=== PATIENT | female | born 1945 | race Caucasian/White ===

== ENCOUNTER → 2016-10-14 | Outpatient (CLI) | payer OTHER ==
[~2016-10-14] MED LIST: ALBUAER2 INH; ASMTWH INH; CHOL100010 PO; CLCC1250 PO; DYZ PO; ESTCR; FISHOIL PO; FSMD/70 PO; LEVO50TA PO; LUTE15CA PO; ROPI1TAB PO; SERT50TA PO; VITAMIN B COMPLEX PO
[2016-10-14 09:35] LABS: BASO % 0.3 %; BASO ABS # 0.02 K/uL (0-0.2); COMPLETE YES; HEMATOCRIT 38.5 % (37-47); IG% 0.3 %; LYMPH ABS # 1.02 K/uL (1.2-3.4); MEAN CELL VOLUME 89.7 fL (80-100); MEAN CORPUSCULAR HEMOGLOBIN 29.4 pg (25-34); MEAN CORPUSCULAR HGB CONC 32.7 g/dl (32-36); MEAN PLATELET VOLUME 10.1 fL (7.4-10.4); MONO % 8.7 %; NEUT % 70.7 %; PLATELET COUNT 188 K/uL (130-400); RED BLOOD COUNT 4.29 M/uL (4.2-5.4); WHITE BLOOD COUNT 6.01 K/uL (4.8-10.8)
[2016-10-14 09:57] LABS: ALB/GLOB RATIO 0.7 (0.9-2); ALKALINE PHOSPHATASE 99 U/L (45-117); ALT/SGPT 17 U/L (12-78); AST/SGOT 13 U/L (15-37); BLOOD UREA NITROGEN 10 mg/dl (7-18); BUN/CREATININE RATIO 14.7 (10-20); CALCIUM 8.5 mg/dl (8.5-10.1); CARBON DIOXIDE 26 mmol/L (21-32); CHLORIDE 105 mmol/L (98-107); CHOLESTEROL 152 mg/dl (0-200); GLUCOSE 97 mg/dl (70-99); POTASSIUM 4.3 mmol/L (3.5-5.1); SODIUM 139 mmol/L (136-145); TRIGLYCERIDES 52 mg/dl (0-150); VERY LOW DENSITY LIPOPROT CALC 10 mg/dl
[2016-10-14 10:04] LABS: CHOLESTEROL/HDL RATIO 2.9; HDL CHOLESTEROL 53 mg/dl; LDL CHOLESTEROL CALCULATED 89 mg/dl
[2016-10-14 10:46] LABS: ESTIMATED AVERAGE GLUCOSE 123 mg/dl; HA1C FLAG Normal (Normal)
--- NOTE | 2016-10-19 11:59 | CODING QUERY MEDICAL NECESSITY ---
SUPPORTING DIAGNOSIS NEEDED A supporting diagnosis is required for the test/procedure performed on this patient in order for us to be reimbursed by the patient's insurance. Please provide a supporting diagnosis for the following test/procedure listed below next to the test name along with your signature. *If there is no additional diagnosis for this patient that would support the following test/procedure please document that below next to the test/procedure. Test(s)/Procedure(s) that require a supporting diagnosis: * GLYCATED HEMOGLOBIN DIAGNOSIS: * DOS: 10/14/16 Provider Signature: Date: Thank you Jayshree Beavers Health Information Management Once completed, please kindly fax back to [phone] For questions please call [phone]
== END | disposition home or self-care (01) ==
LOC: C.LAB 08:04
PROVIDERS: ATTEND Internal Medicine
DX: M85.80 Other specified disorders of bone density and structure, unspecified site (principal); R73.01 Impaired fasting glucose

== ENCOUNTER → 2016-12-05 | Outpatient (CLI) | payer OTHER ==
--- NOTE | 2016-12-06 12:17 | MAMMOGRAPHY REPORT ---
BILATERAL DIGITAL SCREENING MAMMOGRAM WITH CAD: 12/05/2016 CLINICAL HISTORY: Routine screening. Patient has no complaints. TECHNIQUE: Bilateral CC and MLO views were obtained. Repeat MLO views were performed due to patien t motion. Current study was also evaluated with a Computer Aided Detection (CAD) system. COMPARISON: Comparison is made to exams dated: 07/01/2015 mammogram, 04/12/2013 mammogram, 11/07/2011 m ammogram, 09/13/2010 mammogram - [facility], 01/20/2009, and 11/07/2007. BREAST COMPOSITION: There are scattered areas of fibroglandular density in both breasts. FINDINGS: The breast parenchymal pattern is similar to prior mammograms. There are stable lymph nod es in the superior right breast on the MLO view. No new suspicious mass, architectural distortion o r cluster of microcalcifications is seen. IMPRESSION: ACR BI-RADS CATEGORY 1: NEGATIVE There is no mammographic evidence of malignancy. A 1 year screening mammogram is recommended. The p atient will receive written notification of the results. Approximately 10% of breast cancers are not detected with mammography. A negative mammographic repor t should not delay biopsy if a clinically suggestive mass is present. Maru Wright M.D. ay/:12/05/2016 16:41:21 Container Coordinator: Jenna SHELTON(R)(M), [facility] letter sent: Normal 1/2 BI-RADS Code: ACR BI-RADS Category 1: Negative
== END | disposition home or self-care (01) ==
LOC: C.MAMM 08:59
PROVIDERS: ATTEND Internal Medicine
DX: M85.88 Other specified disorders of bone density and structure, other site (principal); Z12.31 Encounter for screening mammogram for malignant neoplasm of breast

== ENCOUNTER → 2017-03-20 | Outpatient (CLI) | payer OTHER ==
[2017-03-20 17:05] LABS: BASO % 0.2 %; BASO ABS # 0.01 K/uL (0-0.2); COMPLETE YES; EOS % 2.1 %; IG% 0.2 %; LYMPH % 19.9 %; LYMPH ABS # 1.23 K/uL (1.2-3.4); MEAN CELL VOLUME 92.2 fL (80-100); MEAN CORPUSCULAR HEMOGLOBIN 29.6 pg (25-34); MEAN CORPUSCULAR HGB CONC 32.1 g/dl (32-36); MEAN PLATELET VOLUME 9.9 fL (7.4-10.4); MONO % 7.3 %; NEUT % 70.3 %; PLATELET COUNT 171 K/uL (130-400); RED BLOOD COUNT 4.12 M/uL (4.2-5.4); WHITE BLOOD COUNT 6.17 K/uL (4.8-10.8)
[2017-03-20 17:10] LABS: URINE APPEARANCE CLEAR (CLEAR); URINE BILIRUBIN NEG (NEG); URINE COLOR YELLOW; URINE NITRITE NEG (NEG); URINE SPECIFIC GRAVITY 1.025 (1.000-1.030); UROBILINOGEN NEG (NEG)
[2017-03-20 17:16] LABS: ALT/SGPT 24 U/L (12-78); BLOOD UREA NITROGEN 18 mg/dl (7-18); CALCIUM 8.6 mg/dl (8.5-10.1); CARBON DIOXIDE 29 mmol/L (21-32); CHLORIDE 109 mmol/L (98-107); CREATININE 0.75 mg/dl (0.60-1.20); GLUCOSE 89 mg/dl (70-99); POTASSIUM 4.5 mmol/L (3.5-5.1); SODIUM 141 mmol/L (136-145)
[2017-03-20 17:18] LABS: ALB/GLOB RATIO 0.7 (0.9-2); ALKALINE PHOSPHATASE 111 U/L (45-117); AST/SGOT 18 U/L (15-37)
[2017-03-20 17:26] LABS: MANUAL MICROSCOPIC REQUIRED? NO
[2017-03-20 17:27] LABS: REVIEW REQ? NO
== END | disposition home or self-care (01) ==
LOC: C.LABBC 15:11
PROVIDERS: ATTEND Physician Assistant
DX: R10.9 Unspecified abdominal pain (principal)

== ENCOUNTER → 2017-03-21 | Outpatient (CLI) | payer OTHER ==
--- NOTE | 2017-03-21 14:07 | DIAGNOSTIC IMAGING REPORT ---
RENAL ULTRASOUND CLINICAL HISTORY: Acute left flank pain. COMPARISON STUDY: MRI of the abdomen March 12, 2013 and renal ultrasound December 12, 2011. TECHNIQUE: Sonography of the kidneys and the urinary bladder was performed. FINDINGS: The right kidney measures 10.8 x 4.6 x 4.8 cm and the left measures 11.4 x 5 x 4.9 cm. There is no right hydronephrosis or hydroureter. There is moderate dilatation of visualized portions of the left ureter. There is no significant left hydronephrosis. Both ureteral jets were visualized. No calculi or masses were identified by sonography. There is mild renal cortical thinning. IMPRESSION: 1. Moderate left ureteral dilatation without hydronephrosis. Ureteral dilatation has increased while collecting system dilatation has improved since MRI of March 12, 2013. Left ureteral jet identified although asymmetrically diminished when compared to the right. No ureteral calculi identified although these may be occult by sonography. 2. No right hydronephrosis. Electronically signed by: Rolando Fontaine M.D. 03/21/2017 2:06 PM Dictated Date/Time: 03/21/2017 1:53 PM
== END | disposition home or self-care (01) ==
LOC: C.ULTRBC 13:20
PROVIDERS: ATTEND Physician Assistant
DX: R10.9 Unspecified abdominal pain (principal)

== ENCOUNTER → 2017-05-02 | Outpatient (CLI) | payer OTHER ==
[~2017-05-02] MED LIST changes: +FUROSEMIDE 40 MG/4 ML VIAL IV ONE
--- NOTE | 2017-05-02 13:07 | DIAGNOSTIC IMAGING REPORT ---
RENAL SCAN DIURETIC (MAG 3) CLINICAL HISTORY: 72-year-old female with history of hydronephrosis of the left kidney, left UPJ obstruction, left flank pain. COMPARISON STUDY: 10/12/2010. TECHNIQUE: A nuclear diuretic renal scan is performed following the IV administration of 8.7 mCi technetium 99m radiolabeled MAG3. Posterior flow images were acquired at one frame every two seconds for a total 24 frames. Posterior static images were acquired every 5 minutes for a total of 40 minutes. IV Lasix was administered at 20 minutes. Renal curves were calculated. FINDINGS: On the flow images, there is normal and symmetric accumulation of activity in both kidneys. On the delayed images, there is normal and symmetric accumulation and excretion of activity from the right kidney. However, persistent activity is noted in the left renal collecting system, which appears dilated. There was appropriate response to Lasix bilaterally which was administered at 20 minutes. Subsequently, clearance phase imaging demonstrates time to peak on the right measures 14 minutes and time to peak on the left measures 15 minutes (normal time to peak 3 to 5 minutes). The T1 half pre-Lasix on the right ureters 22 minutes and the T1 half pre-Lasix on the left measures 41 minutes (normal T1 half pre-Lasix 8-12 minutes). The T1 half post Lasix on the right measures 25 minutes and the T1 half post-Lasix on the left measures 45 minutes. Greater than 50% retention in the left renal collecting system relative to the time of Lasix administration is consistent with an obstructed system. Split function measures 41% on the right and 59% on the left. IMPRESSION: 1. Delayed maximal parenchymal activity in the right kidney with delayed clearance. Appropriate response to Lasix without evidence of obstruction. This may indicate poor tubular excretion secondary to chronic medical renal disease. 2. Findings concerning for left renal obstruction. Electronically signed by: Prateek Trimble M.D. 05/02/2017 1:05 PM Dictated Date/Time: 05/02/2017 11:44 AM
== END | disposition home or self-care (01) ==
LOC: C.NUCL 10:12
PROVIDERS: ATTEND Urology
DX: N13.30 Unspecified hydronephrosis (principal)

== ENCOUNTER → 2017-06-14 | Outpatient (CLI) | payer OTHER ==
[~2017-06-14] MED LIST changes: -FUROSEMIDE 40 MG/4 ML VIAL IV ONE
--- NOTE | 2017-06-14 12:10 | DIAGNOSTIC IMAGING REPORT ---
TWO VIEW CHEST CLINICAL HISTORY: Asthma. FINDINGS: PA and lateral chest radiographs are compared to study dated 06/29/2012. Correlation is made with chest CT dated 11/25/2009. The cardiomediastinal silhouette is unremarkable. Chronic interstitial thickening is unchanged. A nipple shadow projects over the right lung base. Linear atelectasis is noted at the left lung base. No airspace consolidation or pleural effusion is seen. There is no pneumothorax. The skeletal structures are osteopenic. Degenerative change is noted in the thoracic spine. A moderate compression deformity is seen at the thoracal lumbar junction. IMPRESSION: No active disease in the chest. Electronically signed by: Juancarlos Schmitz M.D. 06/14/2017 12:08 PM Dictated Date/Time: 06/14/2017 12:07 PM
== END | disposition home or self-care (01) ==
LOC: C.RAD 11:33
PROVIDERS: ATTEND Specialist
DX: J45.40 Moderate persistent asthma, uncomplicated (principal); J30.9 Allergic rhinitis, unspecified

== ENCOUNTER → 2017-06-28 | Outpatient (CLI) | payer OTHER ==
[2017-06-28 15:06] LABS: BLOOD UREA NITROGEN 17 mg/dl (7-18); BUN/CREATININE RATIO 21.7 (10-20); CREATININE 0.77 mg/dl (0.60-1.20)
== END | disposition home or self-care (01) ==
LOC: C.RAD 13:20
PROVIDERS: ATTEND Urology
DX: N13.30 Unspecified hydronephrosis (principal)

== ENCOUNTER → 2017-10-17 | Outpatient (CLI) | payer MEDICARE ==
[2017-10-17 09:31] LABS: BASO % 0.2 %; BASO ABS # 0.01 K/uL (0-0.2); EOS % 4.3 %; EOS ABS # 0.21 K/uL (0-0.5); HEMATOCRIT 38.9 % (37-47); HEMOGLOBIN 12.8 g/dL (12.0-16.0); IG# 0.01 K/uL (0.00-0.02); LYMPH % 22.6 %; MEAN CELL VOLUME 91.5 fL (80-100); MEAN CORPUSCULAR HEMOGLOBIN 30.1 pg (25-34); MEAN CORPUSCULAR HGB CONC 32.9 g/dl (32-36); MEAN PLATELET VOLUME 10.1 fL (7.4-10.4); MONO % 5.1 %; MONO ABS # 0.25 K/uL (0.11-0.59); NEUT % 67.6 %; NEUT ABS # 3.29 K/uL (1.4-6.5); PLATELET COUNT 151 K/uL (130-400); RED CELL DISTRIBUTION WIDTH CV 13.4 % (11.5-14.5); RED CELL DISTRIBUTION WIDTH SD 44.7 fL (36.4-46.3); WHITE BLOOD COUNT 4.87 K/uL (4.8-10.8)
[2017-10-17 09:51] LABS: ALBUMIN 3.3 gm/dl (3.4-5.0); ALT/SGPT 21 U/L (12-78); AST/SGOT 14 U/L (15-37); BLOOD UREA NITROGEN 11 mg/dl (7-18); CALCIUM 8.5 mg/dl (8.5-10.1); CARBON DIOXIDE 27 mmol/L (21-32); CHOLESTEROL 175 mg/dl (0-200); CREATININE 0.83 mg/dl (0.60-1.20); GLUCOSE 100 mg/dl (70-99); LDL CHOLESTEROL CALCULATED 106 mg/dl; POTASSIUM 4.5 mmol/L (3.5-5.1); SODIUM 139 mmol/L (136-145)
[2017-10-17 10:01] LABS: ALKALINE PHOSPHATASE 109 U/L (45-117); TOTAL PROTEIN 8.1 gm/dl (6.4-8.2)
== END | disposition home or self-care (01) ==
LOC: C.LAB 08:30
PROVIDERS: ATTEND Internal Medicine
DX: E03.9 Hypothyroidism, unspecified (principal); G47.33 Obstructive sleep apnea (adult) (pediatric); E78.5 Hyperlipidemia, unspecified; R73.01 Impaired fasting glucose; G47.61 Periodic limb movement disorder; D69.6 Thrombocytopenia, unspecified; E04.1 Nontoxic single thyroid nodule

== ENCOUNTER → 2017-12-27 | Outpatient (CLI) | payer MEDICARE | END | disposition home or self-care (01) | LOC: C.PAPS 14:15 | PROVIDERS: ATTEND Obstetrics & Gynecology | DX: L90.0 Lichen sclerosus et atrophicus (principal) ==

== ENCOUNTER → 2018-01-02 | Outpatient (CLI) | payer MEDICARE ==
[2018-01-02 16:54] LABS: BLOOD UREA NITROGEN 17 mg/dl (7-18); CREATININE 0.86 mg/dl (0.60-1.20)
== END | disposition home or self-care (01) ==
LOC: C.LAB 16:02
PROVIDERS: ATTEND Urology
DX: R10.9 Unspecified abdominal pain (principal); N13.30 Unspecified hydronephrosis

== ENCOUNTER → 2018-01-16 | Outpatient (CLI) | payer MEDICARE ==
[~2018-01-16] MED LIST changes: +FUROSEMIDE INJ 10 MG/ML 2 ML VIAL IV ONE
--- NOTE | 2018-01-16 11:49 | DIAGNOSTIC IMAGING REPORT ---
NUCLEAR MEDICINE MAG3 RENAL DIURETIC SCAN CLINICAL HISTORY: N13.30 Hydronephrosis of left kidney COMPARISON STUDY: Intravenous urogram dated 07/10/2017 FINDINGS: The patient was injected with 8.9 mCi of technetium 99m MAG3. Fractionated renal function is 60% on the left and 40% on the right. The right renogram curve appear normal with a time of half maximum of 9 minutes. The left renogram curve demonstrates increased activity with time. At 20 minutes, 20 mg of intravenous Lasix was administered. The T-1/2 post Lasix on the left exceeded 20 minutes. 24 minutes following Lasix injection, 33% of the activity was excreted. IMPRESSION: 1. Normal right renogram curve 2. Obstructing left renogram curve with a blunted Lasix response. The T-1/2 post Lasix exceeded 20 minutes. 3. Fractionated renal function of 60% on the left and 40% of the right Electronically signed by: Blas Laughlin M.D. 01/16/2018 11:47 AM Dictated Date/Time: 01/16/2018 11:42 AM
== END | disposition home or self-care (01) ==
LOC: C.NUCL 09:46
PROVIDERS: ATTEND Urology
DX: N13.30 Unspecified hydronephrosis (principal)

== ENCOUNTER → 2018-04-03 | Outpatient (CLI) | payer MEDICARE ==
[~2018-04-03] MED LIST changes: -FUROSEMIDE INJ 10 MG/ML 2 ML VIAL IV ONE
--- NOTE | 2018-04-03 14:54 | DIAGNOSTIC IMAGING REPORT ---
ULTRASOUND LEFT LOWER EXTREMITY VENOUS CLINICAL HISTORY: Left leg pain. COMPARISON STUDY: No priors. TECHNIQUE: Real-time, grayscale, and color Doppler sonography of the deep veins of the left lower extremity was performed from the inguinal crease to the calf. Compression and augmentation were utilized. FINDINGS: There is no sonographic evidence of deep venous thrombosis identified in the left lower extremity. The common femoral, superficial femoral, and popliteal veins are patent and normally compressible. The greater saphenous vein and the profunda femoris vein at the junction with the common femoral vein are clear. The visualized calf veins are patent. IMPRESSION: There is no sonographic evidence of deep venous thrombosis identified in the left lower extremity. Electronically signed by: Juancarlos Schmitz M.D. 04/03/2018 2:53 PM Dictated Date/Time: 04/03/2018 2:52 PM
--- NOTE | 2018-04-03 14:55 | DIAGNOSTIC IMAGING REPORT ---
L TIBIA/FIBULA 2 VIEWS ROUTINE CLINICAL HISTORY: Left leg pain COMPARISON: None. DISCUSSION: No fractures or dislocations are visualized. No erosive or destructive changes are evident. IMPRESSION: No fractures, dislocations, or destructive lesions are visualized. Electronically signed by: Blas Laughlin M.D. 04/03/2018 2:54 PM Dictated Date/Time: 04/03/2018 2:53 PM
== END | disposition home or self-care (01) ==
LOC: C.ULTRBC 14:19
PROVIDERS: ATTEND Physician Assistant Medical
DX: M79.606 Pain in leg, unspecified (principal); R60.9 Edema, unspecified

== ENCOUNTER → 2018-04-05 | Outpatient (CLI) | payer MEDICARE ==
[2018-04-05 10:35] LABS: HEMOGLOBIN A1C 5.9 % (4.5-5.6)
== END ==
LOC: C.LABVPSUW 09:43
PROVIDERS: ATTEND Internal Medicine
DX: E78.5 Hyperlipidemia, unspecified (principal); R73.01 Impaired fasting glucose

== ENCOUNTER 2020-04-03 12:37 | Observation (INO) ==
--- NOTE | 2020-04-03 13:00 | XRay Report ---
XR chest 1V portable CLINICAL HISTORY: stroke mental status change COMPARISON STUDY: 06/29/2012 FINDINGS: The bones soft tissues and hemidiaphragms are normal. The cardiomediastinal silhouette is n ormal. The lungs are clear. The pulmonary vasculature is normal. IMPRESSION: Negative chest. ACT 112: Negative or not required by law. The above report was generated using voice recognition software. It may contain grammatical, syntax or spelling errors. Electronically signed by: Tony Agarwal M.D. 04/03/2020 12:59 PM
[2020-04-03 14:06] LABS: Eosinophils # (auto) 0.12 K/uL (0-0.5); Eosinophils % (auto) 1.9 %; Hematocrit (blood only) 38.8 % (37-47); Hemoglobin 12.7 g/dL (12.0-16.0); Immature Granulocytes # (auto) 0.01 K/uL (0.00-0.02); Immature Granulocytes % (auto) 0.2 %; Lymphocytes # (auto) 1.22 K/uL (1.2-3.4); Lymphocytes % (auto) 19.8 %; Mean Corpuscular Hemoglobin 29.9 pg (25-34); Mean Corpuscular Hgb Conc 32.7 g/dL (32-36); Mean Corpuscular Volume 91.3 fL (80-100); Mean Platelet Volume 10.4 fL (7.4-10.4); Monocytes # (auto) 0.32 K/uL (0.11-0.59); Monocytes % (auto) 5.2 %; Neutrophils % (auto) 72.9 %; Platelet Count 154 K/uL (130-400); RDW Coefficient of Variation 13.5 % (11.5-14.5); RDW Standard Deviation 45.1 fL (36.4-46.3); Red Blood Count 4.25 M/uL (4.2-5.4); White Blood Count 6.17 K/uL (4.8-10.8)
--- NOTE | 2020-04-03 14:12 | Emergency Department Note ---
History of Present Illness General Chief complaint: Weakness Stated complaint: R leg & arm weakness Time Seen by Provider: 04/03/20 12:39 Source: patient and RN notes reviewed Mode of arrival: ambulatory Limitations: no limitations History of Present Illness Provider complaint: Acute right sided weakness Maximum Pain Intensity: 0 This patient is a 75-year-old female who presents to the emergency department with complaints of right upper and right lower extremity weakness that occurred suddenly during a meeting this morning. Patient states she was attempting to get a different chair when she stood up and noticed that the right leg was not functioning properly. She feels that the right arm was heavy. Patient denies any headache, speech difficulties, visual changes, chest pain or shortness of breath. She states the bystanders would not let her attempt to stand up again. She denies any falls or pain in the hip. Patient denies any recent illnesses, fevers, vomiting or diarrhea. Patient denies any history of stroke. She states she has been on a calorie restricted diet of 1200 clarence a day. She has been attempting to maintain a low-fat diet. Home Medications Home Medications Medication Instructions Recorded Confirmed Type omega-3 acid ethyl esters 1 gram 1 cap PO DAILY cap 06/15/19 04/03/20 History capsule albuterol sulfate 90 mcg/actuation 1 - 2 puffs INHALATION Q4H PRN #1 06/23/19 04/03/20 History aerosol inhaler gm budesonide-formoterol HFA 160 2 puffs INHALATION BID PRN gm 06/23/19 04/03/20 History mcg-4.5 mcg/actuation aerosol inhaler ropinirole 1 mg tablet 1 mg PO HS #90 tab 11/18/19 04/03/20 Rx levothyroxine 50 mcg tablet 50 mcg PO DAILY #90 tab 02/03/20 04/03/20 Rx estradiol 10 mcg vaginal tablet 10 mcg PV .twice weekly #24 tab 02/06/20 04/03/20 Rx alendronate 0 mg PO WEEKLY 04/03/20 04/03/20 History cholecalciferol (vitamin D3) 0 mcg PO DAILY 04/03/20 04/03/20 History [Vitamin D3] clobetasol 1 appln TOP .twice weekly PRN 04/03/20 04/03/20 History lutein 0 mg PO DAILY 04/03/20 04/03/20 History sertraline 50 mg PO DAILY 04/03/20 04/03/20 History aspirin 81 mg PO QAM #30 tab 04/04/20 Rx lisinopril 10 mg PO DAILY #30 tab 04/04/20 Rx Allergies Allergy/AdvReac Type Severity Reaction Status Date / Time cortisone Allergy Unknown _ Verified 04/03/20 15:23 pseudoephedrine Allergy Unknown rash Verified 04/03/20 15:23 Sulfa (Sulfonamide AdvReac Intermediate Depression Verified 04/03/20 15:23 Antibiotics) Past Med/Surg History Medical History Asthma (Chronic) History of Mohs micrographic surgery for skin cancer Hydronephrosis of left kidney (Chronic) Lymphedema (Chronic) Obstructive sleep apnea (Chronic) Surgical History History of cataract surgery History of section History of colonoscopy History of surgery pyeloplasty Left S/P skin biopsy Family History Father , age 62 of an DC Cardiac disorder Atherosclerosis Myocardial infarction Mother , age 79 from complications of diabetes Diabetes Stroke Brother Sleep apnea Diabetes Hypertension Daughter Anxiety Social History Smoking Status: Never smoker Second Hand Exposure: No; Hx Alcohol Use: Yes Alcohol type: wine Alcohol Intake Frequency Comment: 1 glass white wine per week on average Hx Substance Use: No Preferred Language: Fijian Communication Ability: Effective Visual Impairment: No Limitations Hearing Ability: Normal Micro Computer Data Processor Required: No Beliefs That Will Affect Care: None marital status: Current Living Situation: Spouse current occupational status: retired 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 and A total of 10 systems reviewed and were otherwise negative Physical Exam Vital Signs Vital Signs - 24 hr 04/03/20 17:05 Pulse Rate [Apical] 68 Respiratory Rate 18 Blood Pressure [Right Arm] 145/90 H Blood Pressure Mean [Right Arm] 108 Pulse Oximetry 97 Oxygen Delivery Method Room Air Vital signs reviewed. General: Well-appearing 75 yo female, in no significant distress. HEENT: No scleral icterus, PERRLA, neck supple. Atraumatic. Cardiovascular: Regular rate and rhythm, no extra sounds. Pulmonary: Clear to auscultation bilaterally, normal work of breathing. Abdomen: Soft, nontender, nondistended, positive bowel sounds. Musculoskeletal: Atraumatic, no peripheral edema. Neurologic: Patient awake alert and oriented x 3, cranial nerves II through XII are grossly intact. Speech is clear. Mild ataxia ([id number]) noted to the right upper extremity. Minimal weakness appreciated in the right lower extremity. Skin: Warm, dry, no rash Course Administered Medications Discontinued Medications Aspirin (Ecotrin Ectab) 81 mg PO QAM [facility] Stop: 05/04/20 08:59 Last Admin: 04/04/20 09:17 Dose: 81 mg Documented by: [id number] Atorvastatin Calcium (Lipitor) 40 mg PO QAM [facility] Stop: 05/04/20 08:59 Last Admin: 04/04/20 09:17 Dose: 40 mg Documented by: [id number] Enoxaparin Sodium (Lovenox) 40 [facility] Stop: 05/04/20 08:59 Last Admin: 04/04/20 09:18 Dose: 40 mg Documented by: [id number] Ioversol (Optiray 320 125ml) 119 ml IV ONCE ONE Stop: 04/03/20 14:52 Last Admin: 04/03/20 14:52 Dose: 119 ml Documented by: [id number] Levothyroxine Sodium (Synthroid) 50 mcg PO [facility] Stop: 05/03/20 20:59 Last Admin: 04/03/20 21:20 Dose: 50 mcg Documented by: [id number] Lisinopril (Zestril) 10 mg PO QAM ONE Stop: 04/04/20 15:31 Last Admin: 04/04/20 15:40 Dose: 10 mg Documented by: [id number] Miscellaneous Information (Discharge, Stroke Patient) 1 ea N/A NOW STA Stop: 04/04/20 15:12 Last Admin: 04/04/20 15:41 Dose: 1 ea Documented by: [id number] Ropinirole HCl (Requip) 1 mg PO [facility] Stop: 05/03/20 20:59 Last Admin: 04/03/20 21:20 Dose: 1 mg Documented by: [id number] Sertraline HCl (Zoloft) 50 mg PO DAILY [facility] Stop: 05/04/20 08:59 Last Admin: 04/04/20 09:18 Dose: 50 mg Documented by: [id number] Medical Decision Making Differential Diagnosis Differential includes acute coronary syndrome, myocardial infarction, CVA, TIA, anemia, infection, pneumonia, UTI, pyelonephritis, poor nutrition, dehydration, electrolyte disturbance,hypoglycemia. Medical Records Attestation: I reviewed the patient's medical records. Home Medications Current Medication List: was personally reviewed by me Laboratory Data Attestation: I reviewed the patient's lab results. Result diagrams: 04/04/20 05:25 04/04/20 05:25 Lab Results 04/03/20 04/03/20 04/03/20 Range/Units 13:30 13:50 13:50 WBC 6.17 (4.8-10.8) K/uL RBC 4.25 (4.2-5.4) M/uL Hgb 12.7 (12.0-16.0) g/dL Hct 38.8 (37-47) % MCV 91.3 (80-100) fL MCH 29.9 (25-34) pg MCHC 32.7 (32-36) g/dL RDW Std Deviation 45.1 (36.4-46.3) fL RDW Coeff of Davis 13.5 (11.5-14.5) % Plt Count 154 (130-400) K/uL MPV 10.4 (7.4-10.4) fL Immature Gran % (Auto) 0.2 % Neut % (Auto) 72.9 % Lymph % (Auto) 19.8 % [place] % (Auto) 5.2 % Eos % (Auto) 1.9 % Baso % (Auto) 0.0 % Neut # (Auto) 4.50 (1.4-6.5) K/uL Lymph # (Auto) 1.22 (1.2-3.4) K/uL [place] # (Auto) 0.32 (0.11-0.59) K/uL Eos # (Auto) 0.12 (0-0.5) K/uL Baso # (Auto) 0.00 (0-0.2) K/uL Immature Gran # (Auto) 0.01 (0.00-0.02) K/uL PT 11.3 (9.0-12.0) Seconds INR 1.1 (0.9-1.1) APTT 28.8 (21.0-31.0) Seconds PTT Ratio 1.0 Sodium (136-145) mmol/L Potassium (3.5-5.1) mmol/L Chloride (98-107) mmol/L Carbon Dioxide (21-32) mmol/L Anion Gap (3-11) BUN (7-18) mg/dl Creatinine (0.6-1.2) mg/dl Est Cr Clr Drug Dosing ml/min Est GFR ( Amer) Est GFR (Non-Af Amer) BUN/Creatinine Ratio (10-20) Glucose (70-99) mg/dl POC Glucose 118 H (70-99) mg/dl Estimat Average Glucose mg/dl Hemoglobin A1c (4.5-5.6) % Calcium (8.5-10.1) mg/dl Magnesium (1.8-2.4) mg/dl Total Bilirubin (0.2-1) mg/dl AST (15-37) U/L ALT (12-78) U/L Alkaline Phosphatase (45-117) U/L Troponin I (0-0.045) ng/ml Total Protein (6.4-8.2) gm/dl Albumin (3.4-5.0) gm/dl Globulin (2.5-4.0) gm/dl Albumin/Globulin Ratio (0.9-2) Urine Color Urine Appearance (Clear) Urine pH (4.5-7.5) Ur Specific [place] (1.000-1.030) Urine Protein (Negative) Urine Glucose (UA) (Negative) Urine Ketones (Negative) Urine Blood (Negative) Urine Nitrite (Negative) Urine Bilirubin (Negative) Urine Urobilinogen (Negative) Ur Leukocyte Esterase (Negative) 04/03/20 04/03/20 04/03/20 Range/Units 13:50 13:50 14:25 WBC (4.8-10.8) K/uL RBC (4.2-5.4) M/uL Hgb (12.0-16.0) g/dL Hct (37-47) % MCV (80-100) fL MCH (25-34) pg MCHC (32-36) g/dL RDW Std Deviation (36.4-46.3) fL RDW Coeff of Davis (11.5-14.5) % Plt Count (130-400) K/uL MPV (7.4-10.4) fL Immature Gran % (Auto) % Neut % (Auto) % Lymph % (Auto) % [place] % (Auto) % Eos % (Auto) % Baso % (Auto) % Neut # (Auto) (1.4-6.5) K/uL Lymph # (Auto) (1.2-3.4) K/uL [place] # (Auto) (0.11-0.59) K/uL Eos # (Auto) (0-0.5) K/uL Baso # (Auto) (0-0.2) K/uL Immature Gran # (Auto) (0.00-0.02) K/uL PT (9.0-12.0) Seconds INR (0.9-1.1) APTT (21.0-31.0) Seconds PTT Ratio Sodium 136 (136-145) mmol/L Potassium 4.1 (3.5-5.1) mmol/L Chloride 106 (98-107) mmol/L Carbon Dioxide 25 (21-32) mmol/L Anion Gap 4.0 (3-11) BUN 16 (7-18) mg/dl Creatinine 0.84 (0.6-1.2) mg/dl Est Cr Clr Drug Dosing 50.3 ml/min Est GFR ( Amer) 78.8 Est GFR (Non-Af Amer) 68.0 BUN/Creatinine Ratio 18.8 (10-20) Glucose 104 H (70-99) mg/dl POC Glucose (70-99) mg/dl Estimat Average Glucose 126 mg/dl Hemoglobin A1c 6.0 H (4.5-5.6) % Calcium 8.6 (8.5-10.1) mg/dl Magnesium 2.2 (1.8-2.4) mg/dl Total Bilirubin 0.4 (0.2-1) mg/dl AST 16 (15-37) U/L ALT 24 (12-78) U/L Alkaline Phosphatase 102 (45-117) U/L Troponin I < 0.015 (0-0.045) ng/ml Total Protein 8.6 H (6.4-8.2) gm/dl Albumin 3.6 (3.4-5.0) gm/dl Globulin 5.0 H (2.5-4.0) gm/dl Albumin/Globulin Ratio 0.7 L (0.9-2) Urine Color Yellow Urine Appearance Clear (Clear) Urine pH 5.0 (4.5-7.5) Ur Specific [place] 1.016 (1.000-1.030) Urine Protein Negative (Negative) Urine Glucose (UA) Negative (Negative) Urine Ketones Negative (Negative) Urine Blood Negative (Negative) Urine Nitrite Negative (Negative) Urine Bilirubin Negative (Negative) Urine Urobilinogen Negative (Negative) Ur Leukocyte Esterase Negative (Negative) Imaging Data Radiologist's Impression: XR chest 1V portable CLINICAL HISTORY: stroke mental status change COMPARISON STUDY: 06/29/2012 FINDINGS: The bones soft tissues and hemidiaphragms are normal. The cardiomediastinal silhouette is normal. The lungs are clear. The pulmonary vasculature is normal. IMPRESSION: Negative chest. ACT 112: Negative or not required by law. The above report was generated using voice recognition software. It may contain grammatical, syntax or spelling errors. Electronically signed by: Tony Agarwal M.D. 04/03/2020 12:59 PM Dictated: 04/03/20 1258 Transcribed: 04/03/[address] angio neck with con CLINICAL HISTORY: Stroke evaluation RIGHT-SIDED WEAKNESS COMPARISON STUDY: No previous studies for comparison. TECHNIQUE: CT angiography was performed from the aortic arch to the skull base. MIP imaging was performed. The patient was scanned in a dynamic helical fashion during intravenous administration of 119 cc of Optiray 320. A dose lowering technique was utilized adhering to the principles of ALARA. CT DOSE: Technique: CT angiogram of the carotid and vertebral arteries was obtained using intravenous contrast and 3-D reconstruction. NASCET criteria was utilized. Findings: The right carotid revealed no evidence of aneurysm and no evidence of dissection. There is no evidence of hemodynamic significant stenosis. There is calcific atheromatous plaque at the level of the right carotid bulb. This does not result in hemodynamically significant stenosis The left carotid revealed no evidence of hemodynamic significant stenosis. There is no evidence of aneurysm. There is no evidence of dissection. There is calcific atheromatous plaque at the level the left carotid bulb. This does not result in hemodynamically significant stenosis. There is no evidence of hemodynamically significant vertebral stenosis. There is no evidence of vertebral dissection. IMPRESSION: No evidence of hemodynamically significant carotid or vertebral artery stenosis. No evidence of dissection. ACT 112: Negative or not required by law. Electronically signed by: Blas Laughlin M.D. 04/03/2020 3:14 PM Dictated: 04/03/201510 Transcribed: 04/03/201510 CTA ANGIOGRAPHY OF THE HEAD CLINICAL HISTORY: Stroke evaluation. Right-sided weakness. COMPARISON STUDY: MRI of the brain February 07, 2019. TECHNIQUE: Helical axial images of the head were obtained following uneventful intravenous administration of 119 cc of Optiray 320. Sagittal and coronal reconstructions were viewed as well as maximal intensity projections on an independent 3-D workstation. Automated exposure control was utilized for the study. A dose lowering technique was utilized adhering to the principles of ALARA. FINDINGS: Please note that the head CT will be reported separately. There are trace air-fluid levels within the bilateral maxillary sinuses, decreased when compared to MRI of February 07, 2019. No acute intracranial hemorrhage, midline shift or mass effect is present. The ventricular system is normal. The basilar cisterns are patent. There are no extra axial collections. There is mild calcified plaque within the bilateral cavernous carotids. There is mild stenosis of the right supraclinoid ICA. The bilateral M1, M2, A1 and A2 segments are patent. No abrupt vessel cut off is identified. There is no intraluminal thrombus. There is no dissection or aneurysm within the intracranial vessels. Posterior circulation is intact. IMPRESSION: No abrupt vessel cut off, intraluminal thrombus or severe stenosis within the intracranial vessels. ACT 112: Negative or not required by law. Electronically signed by: Rolando Fontaine M.D. 04/03/2020 3:16 PM Dictated: 04/03/201509 Transcribed: 04/03/201509 ECG Data Attestation: I personally reviewed and interpreted this ECG as follows: Indication: + other (Stroke symptoms) Rate (beats per minute): 55 Rhythm: + sinus bradycardia ECG Intervals/blocks: no Normal QRS (Low voltage) ECG Harrison: + Normal ECG ST segments: + Normal ST segments ECG Findings: + Other (Premature supraventricular complexes); no PVCs Blood Pressure Blood Pressure Findings: Elevated blood pressure Blood Pressure Disposition: further management by hospitalist MDM Narrative This patient was evaluated and appeared to be in no significant distress. IV access was obtained and laboratory work was drawn. An order for cardiac monitoring was placed and the patient is found to be in a normal sinus rhythm at 64 bpm. Patient's physical examination is consistent with a mild right-sided ataxia. CT/CTA of the head and neck were performed and are negative. Chest x- ray was performed and is negative. EKG reveals a normal sinus rhythm without evidence of acute ischemia or dysrhythmia. Patient symptoms are subtle to resolved at this time however I am suspicious that this may represent TIA versus CVA. Patient's case was discussed with the hospitalist service who will evaluate the patient for admission and further management. Patient is aware of the plan and agrees. Impression & Plan Stroke-like symptoms Discharge Plan Visit Data *Final* Discharge Date/Time: 04/03/20 18:29 Chief Complaint: Weakness Stated Complaint: R leg & arm weakness ED Provider: Rosalva Hodges Discharge Problem: Stroke-like symptoms Patient Disposition: Admitted As Inpatient Discharge Instructions Interventions: ED Discharge Assessment Last Done: 04/03/20 18:29
[2020-04-03 14:17] LABS: INR 1.1 (0.9-1.1); Partial Thromboplastin Time 28.8 Seconds (21.0-31.0); Prothrombin Time 11.3 Seconds (9.0-12.0)
[2020-04-03 14:25] LABS: Alanine Aminotransferase 24 U/L (12-78); Albumin Level 3.6 gm/dl (3.4-5.0); Aspartate Aminotransferase 16 U/L (15-37); BUN Creatinine Ratio 18.8 (10-20); Blood Urea Nitrogen 16 mg/dl (7-18); Calcium 8.6 mg/dl (8.5-10.1); Carbon Dioxide 25 mmol/L (21-32); Chloride 106 mmol/L (98-107); Creatinine Clr Calc Pharmacy 50.3 ml/min; Est GFR (African American) 78.8; Glucose 104 mg/dl (70-99); Magnesium 2.2 mg/dl (1.8-2.4); Potassium 4.1 mmol/L (3.5-5.1); Sodium 136 mmol/L (136-145)
[2020-04-03 14:30] LABS: Albumin Globulin Ratio 0.7 (0.9-2); Alkaline Phosphatase 102 U/L (45-117); Bilirubin,Total 0.4 mg/dl (0.2-1); Total Protein 8.6 gm/dl (6.4-8.2); Troponin I < 0.015 ng/ml (0-0.045)
[2020-04-03 14:36] LABS: Appearance Urine Clear (Clear); Bilirubin Urine Negative (Negative); Blood Urine Negative (Negative); Color Urine Yellow; Glucose Urine UA Negative (Negative); Ketones Urine Negative (Negative); Leukocyte Esterase Urine Negative (Negative); Nitrite Urine Negative (Negative); Protein Urine Negative (Negative); Specific Gravity Urine 1.016 (1.000-1.030); Urobilinogen Urine Negative (Negative)
[2020-04-03] MEDS ORDERED: OPTIRAY 320 125ml IV ONE (14:51)
--- NOTE | 2020-04-03 15:12 | CT Scan Report ---
CT head/brain wo con CLINICAL HISTORY: Stroke evaluation COMPARISON STUDY: No previous studies for comparison. TECHNIQUE: Axial CT of the brain is performed from the vertex to the skull base. IV contrast was not administered for this examination. A dose lowering technique was utilized adhering to the principles of ALARA. CT DOSE: 1035.45 mGy.cm FINDINGS: No intra or extra-axial mass lesions are visualized. There is no CT evidence of acute cortical infarc tion. There is no evidence of midline shift. There is no acute hemorrhage. No calvarial fractures ar e visualized. There are patchy white matter hypodensities likely on a small vessel basis. There is no evidence of pathologic ventricular dilatation. There is no evidence of acute sinusitis IMPRESSION: No acute intracranial findings ACT 112: Negative or not required by law. Electronically signed by: Blas Laughlin M.D. 04/03/2020 3:11 PM
--- NOTE | 2020-04-03 15:16 | CT Scan Report ---
CT angio neck with con CLINICAL HISTORY: Stroke evaluation RIGHT-SIDED WEAKNESS COMPARISON STUDY: No previous studies for comparison. TECHNIQUE: CT angiography was performed from the aortic arch to the skull base. MIP imaging was perfo rmed. The patient was scanned in a dynamic helical fashion during intravenous administration of 119 c c of Optiray 320. A dose lowering technique was utilized adhering to the principles of ALARA. CT DOSE: Technique: CT angiogram of the carotid and vertebral arteries was obtained using intravenous contrast and 3-D reconstruction. NASCET criteria was utilized. Findings: The right carotid revealed no evidence of aneurysm and no evidence of dissection. There is no evidenc e of hemodynamic significant stenosis. There is calcific atheromatous plaque at the level of the righ t carotid bulb. This does not result in hemodynamically significant stenosis The left carotid revealed no evidence of hemodynamic significant stenosis. There is no evidence of an eurysm. There is no evidence of dissection. There is calcific atheromatous plaque at the level the le ft carotid bulb. This does not result in hemodynamically significant stenosis. There is no evidence of hemodynamically significant vertebral stenosis. There is no evidence of verte bral dissection. IMPRESSION: No evidence of hemodynamically significant carotid or vertebral artery stenosis. No evidence of disse ction. ACT 112: Negative or not required by law. Electronically signed by: Blas Laughlin M.D. 04/03/2020 3:14 PM
--- NOTE | 2020-04-03 15:18 | CT Scan Report ---
CTA ANGIOGRAPHY OF THE HEAD CLINICAL HISTORY: Stroke evaluation. Right-sided weakness. COMPARISON STUDY: MRI of the brain February 07, 2019. TECHNIQUE: Helical axial images of the head were obtained following uneventful intravenous administr ation of 119 cc of Optiray 320. Sagittal and coronal reconstructions were viewed as well as maximal i ntensity projections on an independent 3-D workstation. Automated exposure control was utilized for the study. A dose lowering technique was utilized adhering to the principles of ALARA. FINDINGS: Please note that the head CT will be reported separately. There are trace air-fluid levels within the bilateral maxillary sinuses, decreased when compared to MRI of February 07, 2019. No acute intr acranial hemorrhage, midline shift or mass effect is present. The ventricular system is normal. The b asilar cisterns are patent. There are no extra axial collections. There is mild calcified plaque with in the bilateral cavernous carotids. There is mild stenosis of the right supraclinoid ICA. The bilate ral M1, M2, A1 and A2 segments are patent. No abrupt vessel cut off is identified. There is no intral uminal thrombus. There is no dissection or aneurysm within the intracranial vessels. Posterior circul ation is intact. IMPRESSION: No abrupt vessel cut off, intraluminal thrombus or severe stenosis within the intracrani al vessels. ACT 112: Negative or not required by law. Electronically signed by: Rolando Fontaine M.D. 04/03/2020 3:16 PM
--- NOTE | 2020-04-03 17:12 | History & Physical Report ---
Date of Service April 03, 2020 Assessment & Plan (1) Right sided weakness: 75 y/o F here with right sided weakness with concern of acute CVA Right side weakness ED work up negative - CT brain, CTA neck and head. Symptoms resolved. considering risk factors - possible TIA/CVA Will monitor of Tele Check lipid, A1c Allow permissive hypertension ASA Add statin, Check Echo Check MRI brain. bedside swallowing assessed - diet ordered. PT/OT/Speech therapy SUNITHA Risk factor for acute CVA. Assess compliance with treatment Dyslipidemia added statin Chronic leg edema On prn diazyde. hold. Glucose Intolerance Check A1c Elevated protein level consider SPEP/UPEP as outpatient. Hypothyroid Home med Asthma Home meds Sjogrens syndrome Anxiety - zoloft. restless leg - on ropinirole DNR Lovenox AHA, Diabetic diet (2) Dyslipidemia: (3) Hypothyroidism: (4) Impaired fasting glucose: (5) Sjogrens syndrome: (6) Asthma: (7) Obstructive sleep apnea: (8) Elevated blood protein: History of Present Illness Primary Care Provider: Prateek Patricio MD 75 y/o F presented to ED with complaints of right upper and right lower extremity weakness while she was attempting to move chairs, prepping for a meeting this morning. She noted she was dragging her right leg. Later she noted her right arm being heavy and that the dexterity in her right hand was diminished while she tried to type at her smart watch on left hand. Denied any slurred speech, headache, numbness/tingling, visual changes, chest pain or shortness of breath. No fever, chills, N/V/D or fall. In the ED she has been evaluated and initial work up including CT head and CT head and neck angiogram are normal. At the time of my exam her weakness is resolved. Allergies Allergy/AdvReac Type Severity Reaction Status Date / Time cortisone Allergy Unknown _ Verified 04/03/20 15:23 pseudoephedrine Allergy Unknown rash Verified 04/03/20 15:23 Sulfa (Sulfonamide AdvReac Intermediate Depression Verified 04/03/20 15:23 Antibiotics) Home Medications Home Medications Medication Instructions Recorded Confirmed Type omega-3 acid ethyl esters 1 gram 1 cap PO DAILY cap 06/15/19 04/03/20 History capsule albuterol sulfate 90 mcg/actuation 1 - 2 puffs INHALATION Q4H PRN #1 06/23/19 04/03/20 History aerosol inhaler gm budesonide-formoterol HFA 160 2 puffs INHALATION BID PRN gm 06/23/19 04/03/20 History mcg-4.5 mcg/actuation aerosol inhaler ropinirole 1 mg tablet 1 mg PO HS #90 tab 11/18/19 04/03/20 Rx levothyroxine 50 mcg tablet 50 mcg PO DAILY #90 tab 02/03/20 04/03/20 Rx estradiol 10 mcg vaginal tablet 10 mcg PV .twice weekly #24 tab 02/06/20 04/03/20 Rx alendronate 0 mg PO WEEKLY 04/03/20 04/03/20 History cholecalciferol (vitamin D3) 0 mcg PO DAILY 04/03/20 04/03/20 History [Vitamin D3] clobetasol 1 appln TOP .twice weekly PRN 04/03/20 04/03/20 History lutein 0 mg PO DAILY 04/03/20 04/03/20 History sertraline 50 mg PO DAILY 04/03/20 04/03/20 History aspirin 81 mg PO QAM #30 tab 04/04/20 Rx lisinopril 10 mg PO DAILY #30 tab 04/04/20 Rx Past Med/Surg History Medical History Asthma (Chronic) History of Mohs micrographic surgery for skin cancer Hydronephrosis of left kidney (Chronic) Lymphedema (Chronic) Obstructive sleep apnea (Chronic) Surgical History History of cataract surgery History of section History of colonoscopy History of surgery pyeloplasty Left S/P skin biopsy Family History Father , age 62 of an [place] Cardiac disorder Atherosclerosis Myocardial infarction Mother , age 79 from complications of diabetes Diabetes Stroke Brother Sleep apnea Diabetes Hypertension Daughter Anxiety Social History Smoking Status: Never smoker Second Hand Exposure: No; Hx Alcohol Use: Yes Alcohol type: wine Alcohol Intake Frequency Comment: 1 glass white wine per week on average Hx Substance Use: No Preferred Language: Congolese Communication Ability: Effective Visual Impairment: No Limitations Hearing Ability: Normal 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 Required: No Beliefs That Will Affect Care: None marital status: Current Living Situation: Spouse current occupational status: retired 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 Other Information That Helps Us Care for You: No Feels Safe at Home: Yes Safety Concerns: Feels Safe At This Time Childhood Exposure to Second-Hand Smoke: Yes Dental Care, Regularly: Yes Physical Activity Frequency: Daily Seatbelt Use: always Sunscreen Use: Yes Review of Systems Constitutional: no fever Eyes: no diplopia Ear, Nose, Mouth, Throat: no ear pain, no ear trauma and no tinnitus Respiratory: no cough and no dyspnea Cardiovascular: no chest pain and no dyspnea at rest Gastrointestinal: no abdominal pain, no bloating and no nausea Genitourinary: no urinary frequency and no urinary incontinence Musculoskeletal: no back pain, no neck pain and no radicular pain Integumentary: no rash Neurologic: as per Subjective / HPI Psychiatric: no depression, no suicidal ideation and no anxiety Physical Exam Constitutional: WD/WN, vitals as above Eyes: PERRL, conjunctivae normal, anicteric sclerae ENMT: external ear and nose normal, oropharynx normal Neck: trachea midline, no thyromegaly Respiratory: normal respiratory effort, lungs clear to auscultation Cardiovascular: RRR, no murmur, no edema Gastrointestinal (Abdomen): normal bowel sounds, soft, nontender, no hepatosplenomegaly Musculoskeletal: no cyanosis or clubbing, extremities motor strength 5/5 Skin: no rashes, warm and dry Neurologic: patellar DTR's 2+ bilat, sensation intact and PERRL, EOMI, accommodation nl, no face palsy, no dysarthria Psychiatric: A+Ox3, euthymic affect Results & Data Results & Data ([facility]) Vital Signs (Past 12 Hours) Vital Signs Temp Pulse Pulse Resp BP BP Pulse Ox 04/03/20 15:05 64 18 141/87 H 98 04/03/20 12:47 36.8 C 62 18 194/77 H 97 (1) Asthma Asthma complication type: uncomplicated Asthma persistence: intermittent Asthma severity: mild Qualified Code(s): J45.20 - Mild intermittent asthma, uncomplicated
[2020-04-03] MEDS ORDERED: ONDANSETRON INJ 2 MG/ML 2 ML VIAL IV PRN (19:30)
[2020-04-03] MEDS ORDERED: ALBUTEROL HFA 8 GM INHALER INH PRN (19:30)
[2020-04-03] MEDS ORDERED: ACETAMINOPHEN 325 MG TAB PO PRN (19:30)
[2020-04-03] MEDS ORDERED: PHARMACIST DISCHARGE MED REC CONSULT PRN (19:30)
[2020-04-03] MEDS ORDERED: FLUTICASONE/VILANTEROL 200/25MCG 14 PUFFS/INHALER INH PRN (19:38)
[2020-04-03] MEDS ORDERED: Nursing to Pharmacy Communication SCH (20:30)
[2020-04-03] MEDS ORDERED: ROPINIROLE HCL 1 MG TABLET PO SCH (21:00)
[2020-04-03] MEDS ORDERED: LEVOTHYROXINE SODIUM 50 MCG TABLET PO SCH (21:00)
[2020-04-04 05:45] LABS: Basophils # (auto) 0.01 K/uL (0-0.2); Basophils % (auto) 0.2 %; Eosinophils % (auto) 3.7 %; Hematocrit (blood only) 35.9 % (37-47); Hemoglobin 11.9 g/dL (12.0-16.0); Immature Granulocytes # (auto) 0.01 K/uL (0.00-0.02); Immature Granulocytes % (auto) 0.2 %; Lymphocytes # (auto) 1.27 K/uL (1.2-3.4); Lymphocytes % (auto) 23.2 %; Mean Corpuscular Hemoglobin 30.1 pg (25-34); Mean Corpuscular Hgb Conc 33.1 g/dL (32-36); Mean Corpuscular Volume 90.7 fL (80-100); Mean Platelet Volume 10.1 fL (7.4-10.4); Monocytes # (auto) 0.46 K/uL (0.11-0.59); Monocytes % (auto) 8.4 %; Neutrophils # (auto) 3.52 K/uL (1.4-6.5); Neutrophils % (auto) 64.3 %; Platelet Count 132 K/uL (130-400); RDW Coefficient of Variation 13.3 % (11.5-14.5); RDW Standard Deviation 43.9 fL (36.4-46.3); Red Blood Count 3.96 M/uL (4.2-5.4); White Blood Count 5.47 K/uL (4.8-10.8)
[2020-04-04 06:23] LABS: BUN Creatinine Ratio 18.8 (10-20); Creatinine Clr Calc Pharmacy 61.4 ml/min; Est GFR (African American) 90.4; Potassium 3.8 mmol/L (3.5-5.1)
[2020-04-04] MEDS ORDERED: LEVOTHYROXINE SODIUM 50 MCG TABLET PO SCH (06:30)
--- NOTE | 2020-04-04 07:17 | Electrocardiogram Report ---
Test Reason : Blood Pressure : / mmHG Vent. Rate : 055 BPM Atrial Rate : 055 BPM P-R Int : 152 ms QRS Dur : 060 ms QT Int : 402 ms P-R-T Axes : 043 039 049 degrees QTc Int : 384 ms Sinus bradycardia with Premature supraventricular complexes and with occasional Premature ventricular complexes Low voltage QRS Cannot rule out Anteroseptal infarct (cited on or before 29-JUN-2012) Abnormal ECG When compared with ECG of 29-JUN-2012 13:56, Premature ventricular complexes are now Present Premature supraventricular complexes are now Present Vent. rate has decreased BY 52 BPM QT has shortened Confirmed by Tyson Edwards ([id number]) on 04/04/2020 7:16:24 AM Referred By: Confirmed By:Tyson Edwards
--- NOTE | 2020-04-04 07:46 | Magnetic Resonance Report ---
MRI OF THE BRAIN WITHOUT CONTRAST CLINICAL HISTORY: right side weakness COMPARISON STUDY: Noncontrast head CT dated 04/03/2020, MRI the brain dated 02/07/2019 FINDINGS: Sagittal T1, axial diffusion, proton density and T2 weighted axial, coronal FLAIR, and axial T1-weigh aleisha images were acquired. No intra or extra-axial mass lesions are visualized There is a 6 mm focus of restricted water diffusion in the left periventricular deep white matter, co nsistent with a small acute/subacute infarct. There is no evidence of ventricular dilatation. Proton density T2-weighted and FLAIR images reveal scattered foci of increased T2 signal within the w srikanth matter, likely on a small vessel basis. There are no abnormal flow voids. IMPRESSION: 1. Small 6 mm focus of restricted water diffusion in the left periventricular deep white matter consi stent with a small acute/subacute infarct ACT 112: Negative or not required by law. Electronically signed by: Blas Laughlin M.D. 04/04/2020 7:44 AM
[2020-04-04 08:05] LABS: Estimated Average Glucose 126 mg/dl
[2020-04-04] MEDS ORDERED: ATORVASTATIN 40 MG TAB PO SCH (09:00)
[2020-04-04] MEDS ORDERED: SERTRALINE HCL 50 MG TABLET PO SCH (09:00)
[2020-04-04] MEDS ORDERED: ENOXAPARIN INJ 40 MG/0.4 ML SYR SQ SCH (09:00)
[2020-04-04] MEDS ORDERED: ASPIRIN 81 MG ECTAB PO SCH (09:00)
--- NOTE | 2020-04-04 10:19 | Neurology Consultation ---
Date of Consultation April 04, 2020 Assessment & Plan (1) Acute CVA (cerebrovascular accident): (2) Right sided weakness: (3) Chronic cerebral ischemia: this patient experienced a small left periventricular acute CVA on April 03 , resulting in mild right kennedi paresis. MRI of the brain showed a very small left periventricular lesion as well as srfy-[id number] old small vessel ischemic disease diffusely. She does not have a lot in the way of significant risk factors ( no cigarette smoking and no significant issues with blood pressure, glucose, or lipids). CT angiography of the head neck were unremarkable and she has no heart disease. Echocardiogram is pending. Recommendations: 1. Awaiting echocardiogram 2. agree with 81 milligram aspirin tablet daily. 3. I do not see a need given her lipid parameters to initiate a statin. Hemoglobin A1c is mildly elevated stop and blood pressure was mildly elevated. These could be followed as an outpatient and treated as necessary. 4. Otherwise, I have no other neurologic testing or treatment recommendations to make at this time. Overall, I spent a total of 70 minutes with this case including review of records, review of MRI films, direct evaluation patient at bedside, and discussion case with the patient and RN at bedside as well as including differential diagnosis and treatment options. History of Present Illness Reason for Consultation: Patient is a 75-year-old, who I was asked to see at the request of , for neurologic consultation regarding stroke. Requesting Physician: Attending Physician: Kylee Singh MD History of Present Illness this patient has a history of obstructive sleep apnea for the last 15 years. She states that she never misses her CPAP treatment. She does not have a history of hypertension , dyslipidemia, cigarette smoking, or cardiac disease that may have some borderline diabetes. She lives at the [facility] at [facility]. The patient got up as usual at 0700 on April 03 feeling well. 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 She got up at 1150 to put her chair away and felt that her right leg was heavy and stuck to the rug. Her right arm felt heavy as well. She had no pain or numbness / tingling. She sat down in the chair and was brought to the emergency room. She arrived to the emergency room April 03 at 1247 with a temperature of 36.8, pulse 62, respiratory rate 18, blood pressure 194/77, and O2 saturation 97 percent. She had some minimal weakness in her right lower extremity and some mild "ataxia" in her right upper extremity. CBC and Chem profile were unremarkable. Urinalysis was unremarkable. Hemoglobin A1c was 6.0. CT angiography of the head and neck were unremarkable. Plain CT scan of the head was unremarkable as well. MRI of the brain showed a small, 5-6 millimeter acute stroke in the left periventricular white matter. There was [id number] old small vessel ischemic disease noted diffusely. Echocardiogram is pending. This morning, the patient's blood pressure is 150/78. Triglycerides are 45 and total cholesterol 150. she has no complaint of pain, headache, lightheadedness or dizziness, speech problems, vision issues, numbness, weakness, or balance problems. She has no incontinence of urine. Allergies Allergy/AdvReac Type Severity Reaction Status Date / Time cortisone Allergy Unknown _ Verified 04/03/20 15:23 pseudoephedrine Allergy Unknown rash Verified 04/03/20 15:23 Sulfa (Sulfonamide AdvReac Intermediate Depression Verified 04/03/20 15:23 Antibiotics) Home Medications Home Medications Medication Instructions Recorded Confirmed Type omega-3 acid ethyl esters 1 gram 1 cap PO DAILY cap 06/15/19 04/03/20 History capsule albuterol sulfate 90 mcg/actuation 1 - 2 puffs INHALATION Q4H PRN #1 06/23/19 04/03/20 History aerosol inhaler gm budesonide-formoterol HFA 160 2 puffs INHALATION BID PRN gm 06/23/19 04/03/20 History mcg-4.5 mcg/actuation aerosol inhaler ropinirole 1 mg tablet 1 mg PO HS #90 tab 11/18/19 04/03/20 Rx levothyroxine 50 mcg tablet 50 mcg PO DAILY #90 tab 02/03/20 04/03/20 Rx estradiol 10 mcg vaginal tablet 10 mcg PV .twice weekly #24 tab 02/06/20 04/03/20 Rx alendronate 0 mg PO WEEKLY 04/03/20 04/03/20 History cholecalciferol (vitamin D3) 0 mcg PO DAILY 04/03/20 04/03/20 History [Vitamin D3] clobetasol 1 appln TOP .twice weekly PRN 04/03/20 04/03/20 History lutein 0 mg PO DAILY 04/03/20 04/03/20 History sertraline 50 mg PO DAILY 04/03/20 04/03/20 History triamterene-hydrochlorothiazid 1 cap PO 3XWK PRN 04/03/20 04/03/20 History Patient History Medical History Asthma (Chronic) History of Mohs micrographic surgery for skin cancer Hydronephrosis of left kidney (Chronic) Lymphedema (Chronic) Obstructive sleep apnea (Chronic) Surgical History History of cataract surgery History of section History of colonoscopy History of surgery pyeloplasty Left S/P skin biopsy Family History Father , age 62 of an [place] Cardiac disorder Atherosclerosis Myocardial infarction Mother , age 79 from complications of diabetes Diabetes Stroke Brother Sleep apnea Diabetes Hypertension Daughter Anxiety Social History Smoking Status: Never smoker Second Hand Exposure: No; Hx Alcohol Use: Yes Alcohol type: wine Alcohol Intake Frequency Comment: 1 glass white wine per week on average Hx Substance Use: No Preferred Language: Mexican Communication Ability: Effective Visual Impairment: No Limitations Hearing Ability: Normal Lead Data Architect Required: No Beliefs That Will Affect Care: None marital status: Current Living Situation: Spouse current occupational status: retired 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 Other Information That Helps Us Care for You: No Feels Safe at Home: Yes Safety Concerns: Feels Safe At This Time Childhood Exposure to Second-Hand Smoke: Yes Dental Care, Regularly: Yes Physical Activity Frequency: Daily Seatbelt Use: always Sunscreen Use: Yes Review of Systems Constitutional: no fever, no fatigue and no weakness Eyes: no diplopia, no eye pain and no worsening vision Ear, Nose, Mouth, Throat: no ear pain, no tinnitus, no hearing loss, no dizz iness, no hoarseness and no dysphagia Respiratory: no cough and no dyspnea Cardiovascular: no chest pain, no palpitations and no lightheadedness Gastrointestinal: no abdominal pain, no nausea and no vomiting Genitourinary: no dysuria, no urinary frequency and no urinary incontinence Musculoskeletal: no back pain, no neck pain, no radicular pain, no joint pain and no myalgia Integumentary: no rash and no lesions Neurologic: no gait abnormality, no localized weakness, no generalized weakness, no tingling, no numbness, no tremor(s), no abnormal movements, no headache(s), no abnormal speech, no confusion and no memory loss Psychiatric: + anxiety; no depression, no irritability, no difficulty concentrating, no confusion and no hallucinations Endocrine: no fatigue and no flushing Hematologic / Lymphatic: no easy bleeding and no easy bruising Allergy / Immunological: no urticaria and no problem reported Exam (Neuro) Physical Exam: The patient is right-handed. The patient is awake, alert, and attentive. Speech is normal without any aphasia or dysarthria. She can name objects, repeat phrases, and has normal spontaneous speech. Mentation and thought processes are intact, with orientation to person, place and time, and normal fund of knowledge. Attention and concentration are normal. Mood and affect are normal and appropriate. General appearance and grooming are normal. Short and long-term memory are intact. The discs are sharp with positive venous pulsations bilaterally. There are no exudates, hemorrhages, or blood vessel changes seen. Pupils are 3 mm bilaterally and reactive to light. Extraocular eye muscles are intact without nystagmus. Visual acuity and visual altamirano seem normal grossly to confrontation. There are no deficits to sensation in the face in all 3 distributions of the fifth cranial nerve bilaterally. Corneal reflexes are positive bilaterally. Facial strength and symmetry was normal bilaterally. Hearing seems normal to whisper and finger rub bilaterally. Palate moves well without asymmetry. There is normal sternocleidomastoid and trapezius (shoulder shrug) strength bilaterally. Tongue is midline with good strength bilaterally. Neck has a full range of motion without discomfort. There are no cervical bruits bilaterally. There are no cranial or ocular bruits. Cervical, thoracic, and lumbar spine are nontender to palpation. Gait is narrow based, with good arm swing, turns, and stance. Balance is normal eyes open or closed. With outstretched arms there is no drift. There are no resting, postural, or action tremors. There is no ataxia with finger to nose testing. There is good facility in the hands. No other abnormal involuntary movements are noted. Motor strength is 5/5 diffusely in the arms bilaterally including deltoids, biceps, triceps, brachioradialis, wrist flexors and extensors, remote encoding operations supervisor, and intrinsic hand muscles. Motor strength is 5/5 diffusely in the legs bilaterally including hip flexors, quadriceps, hamstrings, gastrocnemius, tibialis anterior, tibialis posterior, and Peroneii muscles. Toe extensors are normal and there is good bulk in the extensor digitorum brevis muscles bilaterally. The limbs have good tone without rigidity or spasticity. There is no atrophy noted in the muscles. Muscle bulk is normal, there is no tenderness to palpation, no myotonia to percussion, and no fasciculations seen. Sensory examination is intact to touch and pin throughout all 4 limbs diffusely. Reflexes are 1/4 in the biceps, triceps, brachioradialis, quadriceps, and Achilles tendons bilaterally. There is no clonus bilaterally. Toes are downgoing with plantar stimulation bilaterally. Peripheral pulses are present and of normal quality distally in all 4 limbs. There is no peripheral edema noted in the limbs. Results & Data ([facility]) Vital Signs (Past 12 Hours) Vital Signs Temp Pulse Pulse Resp BP BP Pulse Ox 04/04/20 07:24 36.8 C 56 L 18 150/78 H 97 04/04/20 04:00 37 C 66 16 156/71 H 97 04/04/20 00:04 76 04/03/20 23:07 36.6 C 61 16 161/74 H 98 Diagnostic Findings MRI OF THE BRAIN WITHOUT CONTRAST CLINICAL HISTORY: right side weakness COMPARISON STUDY: Noncontrast head CT dated 04/03/2020, MRI the brain dated 02/07/2019 FINDINGS: Sagittal T1, axial diffusion, proton density and T2 weighted axial, coronal FLAIR, and axial T1-weighted images were acquired. No intra or extra-axial mass lesions are visualized There is a 6 mm focus of restricted water diffusion in the left periventricular deep white matter, consistent with a small acute/subacute infarct. There is no evidence of ventricular dilatation. Proton density T2-weighted and FLAIR images reveal scattered foci of increased T2 signal within the white matter, likely on a small vessel basis. There are no abnormal flow voids. IMPRESSION: 1. Small 6 mm focus of restricted water diffusion in the left periventricular deep white matter consistent with a small acute/subacute infarct ACT 112: Negative or not required by law. Electronically signed by: Blas Laughlin M.D. 04/04/2020 7:44 AM PG Care Time/CCT Total # of Minutes Spent Total Time Spent with Patient: Total time spent is greater than 50% in coordination of care (as documented) at patient's floor/unit and/or counseling patient: Coding Level of Care Code 76930 Initial Inpt Care Lvl 3 Diagnoses Acute CVA (cerebrovascular accident) I63.9 Right sided weakness R53.1 Chronic cerebral ischemia I67.82 Time Spent (min) 70
--- NOTE | 2020-04-04 13:28 | XCELERA ---
[id number]
[2020-04-04] MEDS ORDERED: STROKE PATIENT DISCHARGE STA (15:11)
--- NOTE | 2020-04-04 15:21 | Discharge Summary ---
Date of Service April 04, 2020 Admission HPI Per Admitting Provider 75 y/o F presented to ED with complaints of right upper and right lower extremity weakness while she was attempting to move chairs, prepping for a meeting this morning. She noted she was dragging her right leg. Later she noted her right arm being heavy and that the dexterity in her right hand was diminished while she tried to type at her smart watch on left hand. Denied any slurred speech, headache, numbness/tingling, visual changes, chest pain or shortness of breath. No fever, chills, N/V/D or fall. In the ED she was been evaluated and initial work up including CT head and CT head and neck angiogram are normal. Symptoms resolved while in ED Principal Diagnosis Acute CVA Discharge Exam Constitutional WD/WN, vitals as above Eyes PERRL, conjunctivae normal, anicteric sclerae ENMT external ear and nose normal, oropharynx normal Neck trachea midline, no thyromegaly Respiratory normal respiratory effort, lungs clear to auscultation Cardiovascular RRR, no murmur, no edema Gastrointestinal (Abdomen) normal bowel sounds, soft, nontender, no hepatosplenomegaly Musculoskeletal no cyanosis or clubbing, extremities motor strength 5/5 Skin no rashes, warm and dry Neurologic patellar DTR's 2+ bilat, sensation intact and PERRL, EOMI, accommodation nl, no face palsy, no dysarthria Psychiatric A+Ox3, euthymic affect Discharge Data Allergies Allergy/AdvReac Type Severity Reaction Status Date / Time cortisone Allergy Unknown _ Verified 04/03/20 15:23 pseudoephedrine Allergy Unknown rash Verified 04/03/20 15:23 Sulfa (Sulfonamide AdvReac Intermediate Depression Verified 04/03/20 15:23 Antibiotics) Consultations 04/03/20 16:49 ED Decision to Admit Stat 04/03/20 19:30 Consult Case Management - Discharge Planning Routine 04/04/20 08:03 Consult Neurology Routine Ordered Studies 04/03/20 12:44 CT angio head w con Stat CT angio neck with con Stat CT head/brain wo con Stat 04/03/20 19:30 MR brain wo con Routine Hospital Course (1) Right sided weakness: 75 y/o F here with right sided weakness with concern of acute CVA Acute CVA ED work up negative - CT brain, CTA neck and head. Symptoms resolved in ED MRI brain - showed a small 6 mm focus of restricted water diffusion in the left periventricular deep white matter consistent with a small acute/subacute infarct Lipid checked - LDL <100. No clear benefit from statin. A1c - 6.0 Echo - negative. BP in 150s on discharge. Added low dose lisinopril ASA Neuro consulted - Recommended holding statin since unclear low with lower LDL SUNITHA Compliant with use. HTN Added lisinopril. f/u with PCP Dyslipidemia LDL <100. No statin recommendation. Chronic leg edema d/lisandra prn diazyde to better assess BP control. Glucose Intolerance A1c 6.0. continue with lifestyle change. Elevated protein level consider SPEP/UPEP as outpatient. Hypothyroid Home med Asthma Home meds Sjogrens syndrome Anxiety - zoloft. restless leg - on ropinirole (2) Dyslipidemia: (3) Hypothyroidism: (4) Impaired fasting glucose: (5) Sjogrens syndrome: (6) Asthma: (7) Obstructive sleep apnea: (8) Elevated blood protein: Total Time Total Time Spent Total Time Spent (In Minutes): 35 min Discharge Plan Discharge Items Patient Disposition: Home - Self-Care Reason For Visit: RIGHT SIDE WEAKNESS Discharge Diagnosis: Acute CVA Activity: Resume your previous activity Non-emergency contact: Primary Care Provider Call non-emergency contact if: you have any medication questions and your symptoms worsen Follow-up/Referrals: Prateek Patricio MD [Primary Care Provider] - Diet: Heart Healthy and Low Sodium (2gm) Addtl Attending Provider Instructions: You have a small stroke. To prevent future stroke you should take a baby aspirin. Since your cholesterol numbers are low, statin benefit has not been established with those levels so at this statin medication is not recommended. Since your blood pressure has been persistently elevated here, a blood pressure medicine has been added to be taking daily. You should check your blood pressure daily and take to your family physician at the visit. Until your next appointment, you should hold off on taking 'triamterene-hydrochlorothiazide' to get a better idea on how your blood pressures are doing. You should follow up with your family physician in one week Pending Studies at Discharge: No Stand-Alone Forms: Medications to Prevent Stroke, My [employer], Smoking Cessation Medications and DC Order Prescriptions: New aspirin 81 mg Tablet,Delayed Release (Dr/Ec) 81 mg PO QAM Qty: 30 RF: 0 lisinopril 10 mg tablet 10 mg PO DAILY Qty: 30 RF: 0 Continued ropinirole 1 mg tablet 1 mg PO HS Qty: 90 RF: 3 levothyroxine 50 mcg tablet 50 mcg PO DAILY Qty: 90 RF: 3 omega-3 acid ethyl esters 1 gram capsule 1 cap PO DAILY RF: 0 budesonide-formoterol 160-4.5 mcg/actuation HFA aerosol inhaler 2 puffs inhalation BID PRN (Reason: Shortness Of Breath) RF: 0 albuterol sulfate 90 mcg/actuation HFA aerosol inhaler 1 - 2 puffs inhalation Q4H PRN (Reason: Shortness Of Breath) Qty: 1 RF: 0 estradiol 10 mcg tablet 10 mcg PV .twice weekly Qty: 24 RF: 3 alendronate 70 mg tablet 0 mg PO WEEKLY RF: 0 clobetasol 0.05 % ointment 1 appln TOP .twice weekly PRN (Reason: Unknown) RF: 0 sertraline 50 mg tablet 50 mg PO DAILY RF: 0 cholecalciferol (vitamin D3) [Vitamin D3] 25 mcg (1,000 unit) Capsule 0 mcg PO DAILY RF: 0 lutein 10 mg Tablet 0 mg PO DAILY RF: 0 Discontinued triamterene-hydrochlorothiazid 37.5-25 mg capsule 1 cap PO 3XWK PRN (Reason: Blood Pressure) RF: 0 Discharge Orders: Discharge Order (Routine); Ordered 04/04/20 Ordered By: Kylee Singh Admission Data Admit Date/Time: 04/03/20 17:32 Attending Provider: Kylee Singh Admit Provider: Kylee Singh Primary Care Provider: Prateek Patricio Other Providers: Kylee Singh ; Sanchez Dye
[2020-04-04] MEDS ORDERED: lisinopriL 10 MG TAB PO ONE (15:30)
--- NOTE | 2020-04-04 15:39 | Pharmacy Report ---
Pharmacist Stroke Counseling - Date of Service April 04, 2020 - Scope: Pharmacy has been consulted to provide medication discharge counseling for this patient admitted with CVA as per the Pharmacist Discharge Counseling for Stroke Patients Protocol. - Medications on Discharge: Home Medications Medication Instructions Recorded Confirmed omega-3 acid ethyl esters 1 gram 1 cap PO DAILY cap 06/15/19 04/03/20 capsule albuterol sulfate 90 mcg/actuation 1 - 2 puffs INHALATION Q4H PRN #1 06/23/19 04/03/20 aerosol inhaler gm budesonide-formoterol HFA 160 2 puffs INHALATION BID PRN gm 06/23/19 04/03/20 mcg-4.5 mcg/actuation aerosol inhaler alendronate 0 mg PO WEEKLY 04/03/20 04/03/20 cholecalciferol (vitamin D3) 0 mcg PO DAILY 04/03/20 04/03/20 [Vitamin D3] clobetasol 1 appln TOP .twice weekly PRN 04/03/20 04/03/20 lutein 0 mg PO DAILY 04/03/20 04/03/20 sertraline 50 mg PO DAILY 04/03/20 04/03/20 New Rx's Medication Instructions Recorded ropinirole 1 mg tablet 1 mg PO HS #90 tab 11/18/19 levothyroxine 50 mcg tablet 50 mcg PO DAILY #90 tab 02/03/20 estradiol 10 mcg vaginal tablet 10 mcg PV .twice weekly #24 tab 02/06/20 aspirin 81 mg PO QAM #30 tab 04/04/20 lisinopril 10 mg PO DAILY #30 tab 04/04/20 - Action: The above medications, specifically ones for stroke treatment/prophylaxis, have been reviewed in detail with the patient and/or patient strategic partnership representative(s) prior to discharge. This includes indication, common adverse reactions, drug interactions, and medication administration. Medication counseling has been employed using the teach-back method to ensure understanding. - Outcome: The patient and/or patient strategic partnership representative(s) have demonstrated understanding of the medications. Additional comments: [] Thank you for allowing pharmacy to be involved in the care of this patient. Please call [phone] with any additional questions
== END 2020-04-04 15:55 | disposition home or self-care (01) ==
LOC: ED 12:37 → 2E 12:37